=== PATIENT | male | born 1965 | race Caucasian/White ===

== ENCOUNTER 2017-01-16 12:54 | Emergency (ER) | payer MEDICARE ==
[~2017-01-16 12:54] MED LIST: BUSPAR PO; CARAFATE PO; FLEXERIL PO; LAMICTAL PO; LITHIUM PO; PRILOSEC PO; TEGRETOL PO; TRAZODONE PO; ZOLOFT PO
== END 2017-01-16 15:20 | disposition left against medical advice (07) ==
LOC: CED 12:54
DX: Z53.21 Procedure and treatment not carried out due to patient leaving prior to being seen by health care provider (principal)